=== PATIENT | male | born 1955 | race Hispanic/Latino ===

== ENCOUNTER → 2025-01-01 | Outpatient (REF) | payer MEDICARE ==
[~2025-01-01] MED LIST: ACTOS15 MG PO; ATORVASTATIN CA20 MG PO; FAMOTIDINE20 MG PO; FERROUS FUMARA324 MG PO; FOLIC ACID0.4 MG PO; GLIPIZIDE ER5 MG PO; LISINOPRIL20 MG PO; METFORMIN HCL500 MG PO; XARELTO10 MG PO; [UNRECOGNIZED DRUG - OTHER]
[2025-01-01 11:37] LABS: BASOPHILS % 0.1 % (0.0-1.0); EOSINOPHILS # (AUTO) 0.2 (0.0-0.4); EOSINOPHILS % 2.3 % (0.0-6.0); HEMOGLOBIN 11.7 g/dL (14.0-18.0); LYMPHOCYTES # (AUTO) 1.5 (1.0-3.2); LYMPHOCYTES % 20.5 % (18.0-39.1); MEAN CORPUSCULAR HEMOGLOBIN 33.4 pg (28-32); MEAN CORPUSCULAR HGB CONC 32.5 g/dL (31-35); MEAN CORPUSCULAR VOLUME 102.9 fL (81-99); MONOCYTES # (AUTO) 0.6 (0.2-0.8); MONOCYTES % 8.2 % (4.4-11.3); NEUTROPHILS % 68.6 % (38.7-80.0); PLATELET COUNT 188 x10e3/uL (140-360); RED CELL DISTRIBUTION WIDTH 13.7 % (11.7-14.4); WHITE BLOOD COUNT 7.33 x10e3/uL (4.8-10.8)
[2025-01-01 12:09] LABS: ANION GAP 13.9 mmol/L (8-16); CALCIUM 9.3 mg/dL (8.4-10.2); CREATININE, SERUM 1.42 mg/dL (0.72-1.25); POTASSIUM 4.9 mmol/L (3.5-5.1)
== END ==
LOC: RAD 10:02 → EDSTATUS 01-08 10:00
PROVIDERS: ATTEND Ophthalmology
DX: Z01.818 Encounter for other preprocedural examination (principal); H25.12 Age-related nuclear cataract, left eye
CPT/HCPCS: 36415; 80048; 85025; 93005

== ENCOUNTER → 2025-02-26 | Outpatient (REF) | payer MEDICARE | LOC: CARD 09:43 | PROVIDERS: ATTEND Specialist/Technologist, Other Surgical Technologist | DX: R60.0 Localized edema (principal) | CPT/HCPCS: 93925; 93970 ==